=== PATIENT | male | born 1940 | race Caucasian/White ===

== ENCOUNTER 2019-02-07 09:27 | Outpatient (RCR) | payer MEDICARE, OTHER ==
[~2019-02-07 09:27] MED LIST: AMITRIPTYLINE H25 MG PO; AZILECT1 MG PO; CLEOCIN HCL150 MG PO; MIRAPEX1 MG PO
--- NOTE | 2019-02-07 15:05 | NUR ---
Voice/Speech Evaluation History: Mr. Martinez is a 78 year old male seen at the [facility] for a Voice and Speech Evaluation. PMH includes skin cancer and Parkinsons disease. Per pt report, he was initially diagnosed with PD approximately 3 years ago. Pt reported his first symptom was a tremor in his right hand. He stated that his current symptoms include tremors in both hands, a soft voice, slow walking, and drooling. When asked, pt reported that he has fallen several times over the last few months in his home but not out in the community. He reported his most significant problem with communicating is slurred words and a mildly soft voice. He agreed that people ask him to repeat himself several times, especially his . He believes that the volume of his speech is not that low and that his needs to see someone about a hearing aid. Mr. Martinez reported that he talks less than he used to because its frustrating this have to repeat himself repeatedly. He also speaks less because he gets winded easily during conversation. Mr. Martinez describes his voice as a little low and monotone with a hoarse quality. Mr. Martinez reported significant drooling, so much so that he uses an entire roll of toilet paper each day to dry the saliva that comes out either anteriorly or from the sides of his mouth. He prefers to eat finger foods because they are easier to manipulate with both his hands and his mouth. He stated that its sometimes difficult to move the food from the front to the back of his mouth. He denied any difficulty swallowing liquids and denied any coughing or choking during meal times. Pt also denied any recent URI, bronchitis, or PNA. Current medications include glycopyrolate, prampexole, and rasagiline. Patient/family Goal: to stop drooling so much Evaluation Results: Acoustic measures: Sound Pressure Level (SPL, acoustic correlate of vocal loudness) measured with a sound level meter at a distance of 40 cm from mouth during 3 voice and speech tasks revealed the following SPL numbers: AverageRangeAdult Male Norm SUSTAINED VOWELS:69 dB65-72 dB80-85 dB READIN dB62-67 dB80-85 dB CONVERSATION:64 dB67-73 dB80-85 dB LENGTH OF SUSTAINED VOWEL8.8 seconds7-12 [id number] seconds Average pitch range for sustained vowel is 137-230 Hz. Normal pitch range for adult males is 85-300 Hz. These results represented conversational vocal SPL levels and reduced vocal intonation that likely significantly reduce Mr. Allen speech intelligibility and communicative effectiveness. He also has difficulty with vocal fading and reduced diaphragmatic support, lending to quiet speech, and reduced articulatory precision, which decreases speech intelligibility. Perceptual measures: Mr. Allen functional speech intelligibility is reduced 75% of the time. The patient reported that he is not loud enough in conversation 90% of the time. Completion of the Voice Handicap Index (VHI) reveals a perception of a severe voice disorder. Oral Motor Examination: An oral motor speech exam revealed the structures and function of Mr. Allen speech mechanism to be within normal limits. Stimulability Testing: Stimulability testing was completed to determine Mr. Allen stimulability for the [facility] ([facility]) program. With stimulation and cues to increase loudness, Mr. Martinez maintained vocal loudness during sustained vowel phonation at 84 dB, and increased his speech loudness in functional phrases to 78 dB. Length of sustained phonation was 7 seconds. Average pitch range with cues was 116-348 Hz. Vocal quality and speech intelligibility improved with increased loudness. 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 Voice deficits included reduced loudness, reduced pitch range, and decreased articulatory precision, which contributed to an overall decrease in speech intelligibility. Based on stimulability testing, Mr. Martinez appears to be an excellent candidate for the [facility] program. He falls below average speech production of adult males of 80-85 dB. He would benefit from training in [facility] to improve speech production including duration of speech, intelligibility, and participation in conversation in social and occupational situations. Mr. Martinez communicated that while he agrees his speech is soft, this is not what is most important to him at this time. Per Mr. Martinez, his difficulty managing his oral secretions interferes most significantly with his quality of life at this time. To that end, it would be beneficial to complete a formal objective eval of swallow safety to determine if pt has any degree of dysphagia and if treatment would improve swallow function and decrease drooling. Prognosis: fair for goals secondary to moderate level of patient motivation Recommendations: 1. It is recommended that Mr. Martinez participate in the [facility] program, which is comprised of 16 intensive sessions (4 days per week for 4 weeks; 60 minute sessions) of voice treatment. 2.Recommend modified barium swallow study to r/o aspiration and determine if treatment is indicated. 3.Recommend evaluation and treatment, as indicated, by physical therapy secondary to pts reports of falling at home. Long-Term Goal: Patient will use a loud voice to communicate effectively in daily interactions with family and friends and in his occupational environment with independence. Short-Term Goals (first 2 weeks): 1.Patient will increase vocal loudness during sustained phonation to reach a target sound pressure level of 80 dB with minimal cues measured at 40 cm from SPL instrument. 2.Patient will increase length of sustained vowel to 10-15 seconds with minimal assistance. 3.Patient will increase pitch range of sustained vowel to 85-300 Hz with minimal assistance. 4.Pt will produce common, functional phrases to promote carry-over of techniques into the home environment at a target sound pressure level of 80 dB with minimal cues measured at 40 cm from SPL instrument. 5.Patient will increase vocal loudness to reach a target sound pressure level of 80 dB while reading at the word and sentence level with minimal cues measured at 40 cm from SPL instrument. 6.Patient will increase vocal loudness to reach a target sound pressure level of 80 dB during simple, structured conversational speech with minimal cues measured at 40 cm from SPL instrument. Short-Term Goals (next 2 weeks): 1.Patient will reach a target sound pressure level of 80-85 dB measured at 40 cm from SPL instrument during sustained phonation with minimal to no cues to increase loudness and to increase duration of phonation. 2.Patient will increase length of sustained vowel to 10-15 seconds with minimal to no cues. 3.Patient will increase pitch range of sustained vowel to 85-300 Hz with minimal to no cues. 4.Pt will produce common, functional phrases to promote carry-over of techniques into the home environment at a target sound pressure level of 80 dB with minimal to no cues measured at 40 cm from SPL instrument. 5.Patient will increase vocal loudness to read a target sound pressure level of 80 dB during more complex paragraph level reading with minimal cues measured at 40 cm from [employer] instrument. 6.Patient will increase vocal loudness to reach a target sound pressure level of 80 dB during structured and unstructured conversational speech with minimal to no cues measured at 40 cm from SPL instrument. Kimberlyn Fam M.A. [facility] Certified Clinician Date of Eval: 02/07/19 Voice Evaluation X 60 minutes NOMS Voice Level 3
== END 2019-02-16 ==
LOC: ST 09:27
PROVIDERS: ATTEND Psychiatry & Neurology Neurology
DX: K11.7 Disturbances of salivary secretion (principal); R49.8 Other voice and resonance disorders; G20 Parkinson's disease

== ENCOUNTER 2019-05-16 09:51 | Outpatient (RCR) | payer MEDICARE, OTHER ==
--- NOTE | 2019-05-07 09:11 | NUR ---
ST Note: Pt called and cancelled appointment today due to not feeling well. Pt will RTC for next scheduled appointment.
== END 2019-05-18 ==
LOC: ST 09:51
PROVIDERS: ATTEND Psychiatry & Neurology Neurology
DX: G20 Parkinson's disease (principal); M62.81 Muscle weakness (generalized); R26.81 Unsteadiness on feet; R26.9 Unspecified abnormalities of gait and mobility

== ENCOUNTER → 2019-05-27 | Outpatient (CLI) | payer MEDICARE, OTHER ==
--- NOTE | 2019-05-30 10:21 | Diagnostic Imaging Report ---
PROCEDURE: X-RAY MODIFIED BARIUM SWALLOW COMPARISON: Modified barium swallow of 04/15/2019. INDICATION: Aspiration Radiation Details: Fluoroscopy time: 1.6 minutes Cumulative dose: 5.1 mGy DISCUSSION: Fluoroscopic examination was performed in conjunction with speech pathology during swallowing a variety of thin and thick liquid consistencies. Provided images demonstrate no laryngeal penetration or aspiration. CONCLUSION: Modified barium swallow demonstrating no laryngeal penetration or aspiration. Please refer to the speech pathology report for further details. Signed by: Deondre Thomas MD on 05/30/2019 10:17 AM
== END ==
LOC: DX 09:44
PROVIDERS: ATTEND Psychiatry & Neurology Neurology
DX: G20 Parkinson's disease (principal); R13.11 Dysphagia, oral phase; R49.8 Other voice and resonance disorders; Z85.828 Personal history of other malignant neoplasm of skin
CPT/HCPCS: 74230

== ENCOUNTER 2019-06-03 10:00 | Outpatient (RCR) | payer MEDICARE, OTHER ==
--- NOTE | 2019-05-20 10:59 | NUR ---
ST NOTE: Pt called and cx apt, he will return to therapy 05/22/19, will have to reschedule MBS that is currently scheduled for 05/23/19
== END 2019-06-18 ==
LOC: PT 10:00
PROVIDERS: ATTEND Psychiatry & Neurology Neurology
DX: R13.11 Dysphagia, oral phase (principal); R13.13 Dysphagia, pharyngeal phase; G20 Parkinson's disease
CPT/HCPCS: 97139

== ENCOUNTER 2020-01-16 10:00 | Outpatient (RCR) | payer MEDICARE, OTHER | END 2020-01-18 | LOC: PT 10:00 | PROVIDERS: ATTEND Orthopaedic Surgery Orthopaedic Trauma | DX: M75.102 Unspecified rotator cuff tear or rupture of left shoulder, not specified as traumatic (principal) ==

== ENCOUNTER 2020-01-23 10:00 | Outpatient (RCR) | payer MEDICARE, OTHER | END 2020-02-17 | LOC: PT 10:00 | PROVIDERS: ATTEND Orthopaedic Surgery Orthopaedic Trauma | DX: M75.102 Unspecified rotator cuff tear or rupture of left shoulder, not specified as traumatic (principal) ==

== ENCOUNTER 2020-04-16 08:49 | Outpatient (RCR) | payer MEDICARE, OTHER | END 2020-04-19 | LOC: PT 08:49 | PROVIDERS: ATTEND Registered Nurse | DX: R13.11 Dysphagia, oral phase (principal); G20 Parkinson's disease ==

== ENCOUNTER 2020-04-28 09:56 | Outpatient (RCR) | payer MEDICARE, OTHER | END 2020-05-17 | LOC: OT 09:56 | PROVIDERS: ATTEND Registered Nurse | DX: G20 Parkinson's disease (principal); Z85.828 Personal history of other malignant neoplasm of skin ==

== ENCOUNTER 2020-10-15 13:47 | Outpatient (RCR) | payer MEDICARE, OTHER | END 2020-10-17 | LOC: PT 13:47 | PROVIDERS: ATTEND Psychiatry & Neurology Neurology | DX: R29.898 Other symptoms and signs involving the musculoskeletal system (principal); G20 Parkinson's disease ==

== ENCOUNTER 2020-11-13 08:00 | Outpatient (RCR) | payer MEDICARE, OTHER | END 2020-11-17 | LOC: PT 08:00 | PROVIDERS: ATTEND Psychiatry & Neurology Neurology | DX: G20 Parkinson's disease (principal); R29.898 Other symptoms and signs involving the musculoskeletal system ==

== ENCOUNTER 2020-12-11 07:52 | Outpatient (RCR) | payer MEDICARE, OTHER | END 2020-12-17 | LOC: PT 07:52 | PROVIDERS: ATTEND Psychiatry & Neurology Neurology | DX: R29.898 Other symptoms and signs involving the musculoskeletal system (principal); G20 Parkinson's disease | CPT/HCPCS: 97139 ==

== ENCOUNTER 2021-06-16 08:56 | Outpatient (RCR) | payer MEDICARE, OTHER | END 2021-06-17 | LOC: PT 08:56 | PROVIDERS: ATTEND Psychiatry & Neurology Neurology | DX: M25.512 Pain in left shoulder (principal); M25.542 Pain in joints of left hand; M25.561 Pain in right knee; R29.898 Other symptoms and signs involving the musculoskeletal system; G20 Parkinson's disease; R29.6 Repeated falls | CPT/HCPCS: 97139 ==

== ENCOUNTER 2021-07-16 11:00 | Outpatient (RCR) | payer MEDICARE, OTHER | END 2021-07-17 | LOC: PT 11:00 | PROVIDERS: ATTEND Psychiatry & Neurology Neurology | DX: M25.512 Pain in left shoulder (principal); S46.002D Unspecified injury of muscle(s) and tendon(s) of the rotator cuff of left shoulder, subsequent encounter; M25.562 Pain in left knee; M25.561 Pain in right knee; R29.6 Repeated falls; R29.898 Other symptoms and signs involving the musculoskeletal system; G20 Parkinson's disease; R27.9 Unspecified lack of coordination | CPT/HCPCS: 97139 ==

== ENCOUNTER 2021-08-12 10:00 | Outpatient (RCR) | payer MEDICARE, OTHER | END 2021-08-17 | LOC: OT 10:00 | PROVIDERS: ATTEND Internal Medicine | DX: M25.512 Pain in left shoulder (principal); M15.8 Other polyosteoarthritis; M25.562 Pain in left knee; M25.561 Pain in right knee; R29.6 Repeated falls ==

== ENCOUNTER 2021-08-20 09:58 | Outpatient (RCR) | payer MEDICARE, OTHER | END 2021-09-16 | LOC: OT 09:58 | PROVIDERS: ATTEND Internal Medicine | DX: M15.9 Polyosteoarthritis, unspecified (principal); M25.642 Stiffness of left hand, not elsewhere classified; M25.641 Stiffness of right hand, not elsewhere classified ==

== ENCOUNTER 2022-09-07 11:40 | Inpatient (IN) | payer MEDICARE, OTHER ==
[~2022-09-07] VITALS: Ht 170.2 cm; Wt 64.1 kg
[2022-09-07 13:03] LABS: CLARITY,URINE CLEAR (CLEAR); COLOR,URINE YELLOW (YELLOW); KETONES,URINE NEGATIVE (NEGATIVE); LEUKOCYTE ESTERASE ,URINE NEGATIVE (NEGATIVE); NITRITE,URINE NEGATIVE (NEGATIVE); PROTEIN,URINE DIPSTICK NEGATIVE (NEGATIVE)
[2022-09-07 13:04] LABS: URINE UROBILINOGEN 0.2 mg/dL (0.2 - 1)
[2022-09-07 13:07] LABS: BACTERIA,URINE FEW /HPF; EPITHELIAL CELLS,URINE FEW /LPF; WBC,URINE (MAN) 0-5 /HPF (0-5)
[2022-09-07 13:30] LABS: BASOPHILS % 0.4 % (0.0-1.0); EOSINOPHILS # (AUTO) 0.1 (0.0-0.4); EOSINOPHILS % 0.6 % (0.0-6.0); LYMPHOCYTES # (AUTO) 0.7 (1.0-3.2); LYMPHOCYTES % 8.8 % (18.0-39.1); MEAN CORPUSCULAR HEMOGLOBIN 27.3 pg (28-32); MEAN CORPUSCULAR HGB CONC 32.6 g/dL (31-35); MONOCYTES # (AUTO) 0.5 (0.2-0.8); MONOCYTES % 6.6 % (4.4-11.3); NEUTROPHILS # (AUTO) 6.4 (2.1-6.9); NEUTROPHILS % 83.3 % (38.7-80.0); PLATELET COUNT 268 x10e3/uL (140-360); RED BLOOD COUNT 5.12 x10e6/uL (4.3-5.7); RED CELL DISTRIBUTION WIDTH 15.8 % (11.7-14.4)
[2022-09-07 13:45] LABS: INR 1.08; PROTHROMBIN TIME 14.5 seconds (11.9-14.5)
[2022-09-07 13:46] LABS: PARTIAL THROMBOPLASTIN TIME 33.4 seconds (23.8-35.5)
[2022-09-07 13:50] LABS: ALBUMIN 3.3 g/dL (3.5-5.0); ALBUMIN/GLOBULIN RATIO 1.1 (0.8-2.0); ANION GAP 14.3 mmol/L (8-16); CALCIUM 8.8 mg/dL (8.4-10.2); CREATININE, SERUM 1.49 mg/dL (0.72-1.25); POTASSIUM 4.3 mmol/L (3.5-5.1)
[2022-09-07] MEDS ORDERED: ONDANSETRON HCL INJ 2MG/ML 2ML 2 MG/ML VIAL IV PRN (14:15)
[2022-09-07] MEDS: FAMOTIDINE 20 MG/2 ML VIAL IV SCH ×2 (15:02→21:14)
[2022-09-07 15:29] VITALS: PULSE 60; RESP 20; O2SAT 98
[2022-09-07 17:19] VITALS: BP 102/62; PULSE 63; RESP 16; TEMP 97.6; O2SAT 93
[2022-09-07] MEDS ORDERED: AMANTADINE100 M1 PO (18:17)
[2022-09-07] MEDS ORDERED: FUROSEMIDE20 MG PO (18:17)
[2022-09-07 18:46] VITALS: BP 102/62; PULSE 63; RESP 16; TEMP 97.6; O2SAT 93
[2022-09-07 20:00] VITALS: BP 102/62; PULSE 63; RESP 16; TEMP 97.6; O2SAT 93
[2022-09-08] VITALS (7 sets, daily range): BP systolic 107–161; BP diastolic 60–78; PULSE 58–97; RESP 16–20; TEMP 97.9–98.3; O2SAT 93–96
[2022-09-08 05:03] LABS: BASOPHILS % 0.6 % (0.0-1.0); EOSINOPHILS # (AUTO) 0.1 (0.0-0.4); EOSINOPHILS % 1.3 % (0.0-6.0); HEMATOCRIT 40.7 % (38.2-49.6); HEMOGLOBIN 13.2 g/dL (14.0-18.0); LYMPHOCYTES # (AUTO) 1.1 (1.0-3.2); LYMPHOCYTES % 17.4 % (18.0-39.1); MEAN CORPUSCULAR HEMOGLOBIN 27.5 pg (28-32); MEAN CORPUSCULAR HGB CONC 32.4 g/dL (31-35); MEAN CORPUSCULAR VOLUME 84.8 fL (81-99); MONOCYTES # (AUTO) 0.6 (0.2-0.8); MONOCYTES % 8.9 % (4.4-11.3); NEUTROPHILS # (AUTO) 4.5 (2.1-6.9); NEUTROPHILS % 71.5 % (38.7-80.0); PLATELET COUNT 245 x10e3/uL (140-360); RED CELL DISTRIBUTION WIDTH 15.5 % (11.7-14.4)
[2022-09-08 05:36] LABS: ALBUMIN 2.8 g/dL (3.5-5.0); ANION GAP 14.4 mmol/L (8-16); CALCIUM 8.3 mg/dL (8.4-10.2); CHOL/HDL RATIO 3.3 (3.9-4.7); CREATININE, SERUM 1.32 mg/dL (0.72-1.25); POTASSIUM 4.4 mmol/L (3.5-5.1)
[2022-09-08] MEDS ORDERED: FUROSEMIDE INJ 10 MG/ML 2 ML VIAL IV SCH (09:00)
[2022-09-08] MEDS: PRAMIPEXOLE DIHYDROCHLORIDE 1 MG TAB PO SCH ×3 (09:33→21:04)
[2022-09-08] MEDS: FAMOTIDINE 20 MG/2 ML VIAL IV SCH ×2 (09:33→21:04)
[2022-09-08] MEDS: AMANTADINE HCL 100 MG CAP PO SCH ×2 (09:33→17:05)
[2022-09-08] MEDS: RASAGILINE 1 MG TAB PO SCH (09:34)
[2022-09-08] MEDS ORDERED: FUROSEMIDE INJ 10 MG/ML 2 ML VIAL IV ONE (10:45)
[2022-09-08] MEDS: FUROSEMIDE INJ 10 MG/ML 4 ML VIAL IV SCH (17:05)
[2022-09-08] MEDS ORDERED: MUPIROCIN 2% OINT 22 GM TUBE TOP SCH (18:00)
[2022-09-08] MEDS: MUPIROCIN 2% OINT 22 GM TUBE TOP SCH (21:00)
[2022-09-08] MEDS: AMITRIPTYLINE HCL 25 MG TAB PO SCH (22:25)
[2022-09-08] MEDS ORDERED: AMITRIPTYLINE HCL 25 MG TAB PO SCH (22:30)
[2022-09-09] VITALS (8 sets, daily range): BP systolic 92–116; BP diastolic 65–79; PULSE 53–111; RESP 16–18; TEMP 97.5–98.6; O2SAT 92–100
[2022-09-09] MEDS: FAMOTIDINE 20 MG/2 ML VIAL IV SCH ×2 (08:43→21:27)
[2022-09-09] MEDS: FUROSEMIDE INJ 10 MG/ML 4 ML VIAL IV SCH ×2 (08:43→16:51)
[2022-09-09] MEDS: PRAMIPEXOLE DIHYDROCHLORIDE 1 MG TAB PO SCH ×3 (08:43→21:25)
[2022-09-09] MEDS: RASAGILINE 1 MG TAB PO SCH (08:43)
[2022-09-09] MEDS: MUPIROCIN 2% OINT 22 GM TUBE TOP SCH (08:44)
[2022-09-09] MEDS: AMANTADINE HCL 100 MG CAP PO SCH ×2 (08:44→16:51)
[2022-09-09] MEDS ORDERED: ONDANSETRON HCL 4 MG ORAL DISINTEGRATING TAB PO PRN (10:45)
[2022-09-09] MEDS: METOPROLOL SUCCINATE 25 MG TAB XL PO SCH (12:49)
[2022-09-09 15:25] LABS: ALBUMIN 3.5 g/dL (3.5-5.0); ALBUMIN/GLOBULIN RATIO 0.9 (0.8-2.0); ANION GAP 22.2 mmol/L (8-16); CALCIUM 9.3 mg/dL (8.4-10.2); CREATININE, SERUM 1.73 mg/dL (0.72-1.25); POTASSIUM 4.2 mmol/L (3.5-5.1)
[2022-09-09] MEDS ORDERED: AMITRIPTYLINE HCL 25 MG TAB PO SCH (21:00)
[2022-09-09] MEDS: AMITRIPTYLINE HCL 25 MG TAB PO SCH (21:23)
[2022-09-10] VITALS (8 sets, daily range): BP systolic 91–116; BP diastolic 58–73; PULSE 52–66; RESP 15–18; TEMP 97.4–98.5; O2SAT 96–100
[2022-09-10] MEDS: METOPROLOL SUCCINATE 25 MG TAB XL PO SCH (09:00)
[2022-09-10 09:57] LABS: BASOPHILS % 0.5 % (0.0-1.0); EOSINOPHILS # (AUTO) 0.1 (0.0-0.4); EOSINOPHILS % 1.1 % (0.0-6.0); HEMOGLOBIN 16.1 g/dL (14.0-18.0); LYMPHOCYTES # (AUTO) 0.9 (1.0-3.2); LYMPHOCYTES % 15.2 % (18.0-39.1); MEAN CORPUSCULAR HEMOGLOBIN 27.4 pg (28-32); MEAN CORPUSCULAR HGB CONC 33.5 g/dL (31-35); MEAN CORPUSCULAR VOLUME 81.6 fL (81-99); MONOCYTES # (AUTO) 0.5 (0.2-0.8); NEUTROPHILS # (AUTO) 4.6 (2.1-6.9); PLATELET COUNT 264 x10e3/uL (140-360); RED BLOOD COUNT 5.88 x10e6/uL (4.3-5.7); RED CELL DISTRIBUTION WIDTH 16.5 % (11.7-14.4)
[2022-09-10 10:15] LABS: ANION GAP 18.1 mmol/L (8-16); CALCIUM 8.9 mg/dL (8.4-10.2); CREATININE, SERUM 1.71 mg/dL (0.72-1.25); POTASSIUM 4.1 mmol/L (3.5-5.1)
[2022-09-10] MEDS: RASAGILINE 1 MG TAB PO SCH (11:05)
[2022-09-10] MEDS: PRAMIPEXOLE DIHYDROCHLORIDE 1 MG TAB PO SCH ×3 (11:05→20:09)
[2022-09-10] MEDS: AMANTADINE HCL 100 MG CAP PO SCH ×2 (11:05→16:40)
[2022-09-10] MEDS: FUROSEMIDE INJ 10 MG/ML 4 ML VIAL IV SCH ×2 (11:07→16:40)
[2022-09-10] MEDS: FAMOTIDINE 20 MG/2 ML VIAL IV SCH ×2 (11:08→20:09)
[2022-09-10] MEDS: MUPIROCIN 2% OINT 22 GM TUBE TOP SCH (16:02)
[2022-09-10] MEDS: AMITRIPTYLINE HCL 25 MG TAB PO SCH (20:09)
[2022-09-11] VITALS (7 sets, daily range): BP systolic 80–111; BP diastolic 53–92; PULSE 49–64; RESP 15–18; TEMP 97.1–98.6; O2SAT 96–100
[2022-09-11] MEDS: METOPROLOL SUCCINATE 25 MG TAB XL PO SCH (09:00)
[2022-09-11] MEDS: AMANTADINE HCL 100 MG CAP PO SCH ×2 (09:03→16:58)
[2022-09-11] MEDS: PRAMIPEXOLE DIHYDROCHLORIDE 1 MG TAB PO SCH ×3 (09:03→20:46)
[2022-09-11] MEDS: FUROSEMIDE INJ 10 MG/ML 4 ML VIAL IV SCH ×2 (09:04→16:54)
[2022-09-11] MEDS: FAMOTIDINE 20 MG/2 ML VIAL IV SCH ×2 (09:04→20:47)
[2022-09-11] MEDS: RASAGILINE 1 MG TAB PO SCH (09:04)
[2022-09-11] MEDS: MUPIROCIN 2% OINT 22 GM TUBE TOP SCH (09:05)
[2022-09-11] MEDS: AMITRIPTYLINE HCL 25 MG TAB PO SCH (20:46)
[2022-09-12] VITALS (8 sets, daily range): BP systolic 95–127; BP diastolic 58–91; PULSE 57–69; RESP 17–20; TEMP 97.5–98.3; O2SAT 95–100
[2022-09-12 05:55] LABS: ALBUMIN 3.6 g/dL (3.5-5.0); ALBUMIN/GLOBULIN RATIO 0.9 (0.8-2.0); ANION GAP 26.3 mmol/L (8-16); CREATININE, SERUM 2.18 mg/dL (0.72-1.25); MAGNESIUM 2.1 MG/DL (1.3-2.1); POTASSIUM 5.3 mmol/L (3.5-5.1)
[2022-09-12 06:00] LABS: BASOPHILS # (AUTO) 0.1 (0.0-0.1); BASOPHILS % 0.7 % (0.0-1.0); EOSINOPHILS # (AUTO) 0.1 (0.0-0.4); EOSINOPHILS % 0.9 % (0.0-6.0); HEMATOCRIT 60.3 % (38.2-49.6); HEMOGLOBIN 19.1 g/dL (14.0-18.0); LYMPHOCYTES % 13.4 % (18.0-39.1); MEAN CORPUSCULAR HEMOGLOBIN 27.3 pg (28-32); MEAN CORPUSCULAR HGB CONC 31.7 g/dL (31-35); MEAN CORPUSCULAR VOLUME 86.3 fL (81-99); MONOCYTES # (AUTO) 0.8 (0.2-0.8); MONOCYTES % 10.1 % (4.4-11.3); NEUTROPHILS # (AUTO) 5.7 (2.1-6.9); NEUTROPHILS % 74.6 % (38.7-80.0); PLATELET COUNT 159 x10e3/uL (140-360); RED BLOOD COUNT 6.99 x10e6/uL (4.3-5.7); RED CELL DISTRIBUTION WIDTH 18.1 % (11.7-14.4)
[2022-09-12] MEDS: PRAMIPEXOLE DIHYDROCHLORIDE 1 MG TAB PO SCH ×3 (09:02→21:34)
[2022-09-12] MEDS: RASAGILINE 1 MG TAB PO SCH (09:02)
[2022-09-12] MEDS: AMANTADINE HCL 100 MG CAP PO SCH ×2 (09:02→16:08)
[2022-09-12] MEDS: FAMOTIDINE 20 MG/2 ML VIAL IV SCH ×2 (09:03→21:34)
[2022-09-12] MEDS: FUROSEMIDE INJ 10 MG/ML 4 ML VIAL IV SCH (09:03)
[2022-09-12] MEDS ORDERED: SODIUM CHLORIDE 0.9% 500ML 500 ML IV ONE (11:30)
[2022-09-12] MEDS: MUPIROCIN 2% OINT 22 GM TUBE TOP SCH (15:08)
[2022-09-12] MEDS: AMITRIPTYLINE HCL 25 MG TAB PO SCH (21:34)
[2022-09-13] VITALS (7 sets, daily range): BP systolic 95–110; BP diastolic 58–73; PULSE 54–68; RESP 16–20; TEMP 97.7–98.6; O2SAT 93–100
[2022-09-13 05:39] LABS: BASOPHILS # (AUTO) 0.1 (0.0-0.1); BASOPHILS % 0.6 % (0.0-1.0); EOSINOPHILS # (AUTO) 0.1 (0.0-0.4); EOSINOPHILS % 0.9 % (0.0-6.0); HEMOGLOBIN 16.7 g/dL (14.0-18.0); LYMPHOCYTES # (AUTO) 1.1 (1.0-3.2); LYMPHOCYTES % 13.5 % (18.0-39.1); MEAN CORPUSCULAR HEMOGLOBIN 27.3 pg (28-32); MEAN CORPUSCULAR HGB CONC 32.1 g/dL (31-35); MONOCYTES # (AUTO) 0.8 (0.2-0.8); MONOCYTES % 10.7 % (4.4-11.3); NEUTROPHILS # (AUTO) 5.8 (2.1-6.9); NEUTROPHILS % 73.8 % (38.7-80.0); PLATELET COUNT 238 x10e3/uL (140-360); RED BLOOD COUNT 6.12 x10e6/uL (4.3-5.7); RED CELL DISTRIBUTION WIDTH 16.2 % (11.7-14.4)
[2022-09-13 06:00] LABS: ALBUMIN 3.6 g/dL (3.5-5.0); ALBUMIN/GLOBULIN RATIO 1.1 (0.8-2.0); ANION GAP 23.3 mmol/L (8-16); CALCIUM 9.1 mg/dL (8.4-10.2); CREATININE, SERUM 2.11 mg/dL (0.72-1.25); POTASSIUM 4.3 mmol/L (3.5-5.1)
[2022-09-13] MEDS: PRAMIPEXOLE DIHYDROCHLORIDE 1 MG TAB PO SCH ×4 (09:00→20:32)
[2022-09-13] MEDS: AMANTADINE HCL 100 MG CAP PO SCH ×3 (09:00→17:00)
[2022-09-13] MEDS: RASAGILINE 1 MG TAB PO SCH ×2 (09:00→14:06)
[2022-09-13] MEDS: FAMOTIDINE 20 MG/2 ML VIAL IV SCH ×2 (09:00→20:32)
[2022-09-13] MEDS: SODIUM CHLORIDE 0.9% 1000ML 1,000 ML IV SCH (09:10)
[2022-09-13] MEDS: MUPIROCIN 2% OINT 22 GM TUBE TOP SCH (09:11)
[2022-09-13] MEDS: AMITRIPTYLINE HCL 25 MG TAB PO SCH (20:32)
[2022-09-14] VITALS (9 sets, daily range): BP systolic 85–124; BP diastolic 53–69; PULSE 47–61; RESP 16–20; TEMP 97.3–98.6; O2SAT 95–100
[2022-09-14 04:52] LABS: BASOPHILS # (AUTO) 0.1 (0.0-0.1); EOSINOPHILS # (AUTO) 0.1 (0.0-0.4); EOSINOPHILS % 1.4 % (0.0-6.0); HEMATOCRIT 51.4 % (38.2-49.6); HEMOGLOBIN 16.3 g/dL (14.0-18.0); LYMPHOCYTES # (AUTO) 0.9 (1.0-3.2); LYMPHOCYTES % 13.9 % (18.0-39.1); MEAN CORPUSCULAR HEMOGLOBIN 27.2 pg (28-32); MEAN CORPUSCULAR HGB CONC 31.7 g/dL (31-35); MEAN CORPUSCULAR VOLUME 85.8 fL (81-99); MONOCYTES # (AUTO) 0.5 (0.2-0.8); MONOCYTES % 8.5 % (4.4-11.3); NEUTROPHILS # (AUTO) 4.7 (2.1-6.9); NEUTROPHILS % 74.7 % (38.7-80.0); PLATELET COUNT 235 x10e3/uL (140-360); RED BLOOD COUNT 5.99 x10e6/uL (4.3-5.7); RED CELL DISTRIBUTION WIDTH 16.2 % (11.7-14.4)
[2022-09-14 05:16] LABS: ALBUMIN 3.3 g/dL (3.5-5.0); ANION GAP 17.2 mmol/L (8-16); CALCIUM 9.1 mg/dL (8.4-10.2); CREATININE, SERUM 1.59 mg/dL (0.72-1.25); MAGNESIUM 2.4 MG/DL (1.3-2.1); POTASSIUM 4.2 mmol/L (3.5-5.1)
[2022-09-14] MEDS: SODIUM CHLORIDE 0.9% 1000ML 1,000 ML IV SCH (05:47)
[2022-09-14] MEDS: FAMOTIDINE 20 MG/2 ML VIAL IV SCH ×2 (10:05→20:54)
[2022-09-14] MEDS: PRAMIPEXOLE DIHYDROCHLORIDE 1 MG TAB PO SCH ×3 (10:05→20:53)
[2022-09-14] MEDS: RASAGILINE 1 MG TAB PO SCH (10:06)
[2022-09-14] MEDS: AMANTADINE HCL 100 MG CAP PO SCH ×2 (10:06→20:54)
[2022-09-14] MEDS: MUPIROCIN 2% OINT 22 GM TUBE TOP SCH (10:10)
[2022-09-14] MEDS: AMITRIPTYLINE HCL 25 MG TAB PO SCH (20:54)
[2022-09-15] VITALS (7 sets, daily range): BP systolic 82–136; BP diastolic 51–94; PULSE 50–65; RESP 15–20; TEMP 97.3–97.7; O2SAT 89–100
[2022-09-15] MEDS: SODIUM CHLORIDE 0.9% 1000ML 1,000 ML IV SCH ×2 (01:39→21:30)
[2022-09-15] MEDS: AMANTADINE HCL 100 MG CAP PO SCH ×2 (08:25→20:10)
[2022-09-15] MEDS: PRAMIPEXOLE DIHYDROCHLORIDE 1 MG TAB PO SCH ×3 (08:25→20:10)
[2022-09-15] MEDS: FAMOTIDINE 20 MG/2 ML VIAL IV SCH ×2 (08:25→20:18)
[2022-09-15] MEDS: RASAGILINE 1 MG TAB PO SCH (08:25)
[2022-09-15] MEDS: MUPIROCIN 2% OINT 22 GM TUBE TOP SCH (08:27)
[2022-09-15] MEDS: METOPROLOL TARTRATE 25 MG TAB PO SCH (16:51)
[2022-09-15] MEDS: AMITRIPTYLINE HCL 25 MG TAB PO SCH (20:10)
[2022-09-16 01:00] VITALS: BP 116/59; PULSE 66; RESP 18; TEMP 98.3; O2SAT 97
[2022-09-16 04:59] LABS: BASOPHILS # (AUTO) 0.1 (0.0-0.1); BASOPHILS % 0.8 % (0.0-1.0); EOSINOPHILS # (AUTO) 0.2 (0.0-0.4); EOSINOPHILS % 2.3 % (0.0-6.0); HEMATOCRIT 47.9 % (38.2-49.6); HEMOGLOBIN 15.4 g/dL (14.0-18.0); LYMPHOCYTES # (AUTO) 1.6 (1.0-3.2); LYMPHOCYTES % 19.5 % (18.0-39.1); MEAN CORPUSCULAR HEMOGLOBIN 27.1 pg (28-32); MEAN CORPUSCULAR HGB CONC 32.2 g/dL (31-35); MEAN CORPUSCULAR VOLUME 84.2 fL (81-99); MONOCYTES # (AUTO) 0.7 (0.2-0.8); MONOCYTES % 8.3 % (4.4-11.3); NEUTROPHILS # (AUTO) 5.5 (2.1-6.9); NEUTROPHILS % 68.8 % (38.7-80.0); PLATELET COUNT 222 x10e3/uL (140-360); RED BLOOD COUNT 5.69 x10e6/uL (4.3-5.7); RED CELL DISTRIBUTION WIDTH 15.9 % (11.7-14.4)
[2022-09-16 05:11] VITALS: BP 155/77; PULSE 66; RESP 16; TEMP 97.3; O2SAT 99
[2022-09-16 05:22] LABS: ALBUMIN 3.1 g/dL (3.5-5.0); ANION GAP 14.7 mmol/L (8-16); CALCIUM 8.9 mg/dL (8.4-10.2); CREATININE, SERUM 1.47 mg/dL (0.72-1.25); MAGNESIUM 2.1 MG/DL (1.3-2.1); POTASSIUM 4.7 mmol/L (3.5-5.1)
[2022-09-16 08:00] VITALS: BP 103/55; PULSE 47; RESP 18; TEMP 97.4; O2SAT 97
[2022-09-16] MEDS: METOPROLOL TARTRATE 25 MG TAB PO SCH ×2 (09:00→16:53)
[2022-09-16 09:01] VITALS: BP 103/55; PULSE 47; RESP 18; TEMP 97.4; O2SAT 97
[2022-09-16] MEDS: AMANTADINE HCL 100 MG CAP PO SCH (09:47)
[2022-09-16] MEDS: RASAGILINE 1 MG TAB PO SCH (09:47)
[2022-09-16] MEDS: PRAMIPEXOLE DIHYDROCHLORIDE 1 MG TAB PO SCH ×2 (09:47→15:12)
[2022-09-16] MEDS: FAMOTIDINE 20 MG/2 ML VIAL IV SCH (09:47)
[2022-09-16 12:00] VITALS: BP 123/68; PULSE 58; RESP 21; TEMP 97.8; O2SAT 99
[2022-09-16 15:58] VITALS: BP 109/67; PULSE 61; RESP 21; TEMP 98.6; O2SAT 99
[2022-09-16] MEDS ORDERED: FAMOTIDINE 20 MG TAB PO SCH (16:30)
== END 2022-09-16 18:13 | DRG 291 ==
LOC: ER 11:49 → ERHOLD 14:09 → MED/SURG 17:08
PROVIDERS: ADMIT Internal Medicine; ATTEND Internal Medicine
DX: I13.0 Hypertensive heart and chronic kidney disease with heart failure and stage 1 through stage 4 chronic kidney disease, or unspecified chronic kidney disease (principal); I50.43 Acute on chronic combined systolic (congestive) and diastolic (congestive) heart failure; E46 Unspecified protein-calorie malnutrition; N17.9 Acute kidney failure, unspecified; I35.0 Nonrheumatic aortic (valve) stenosis; Z68.22 Body mass index [BMI] 22.0-22.9, adult; W01.10XA Fall on same level from slipping, tripping and stumbling with subsequent striking against unspecified object, initial encounter; Z91.81 History of falling; Y92.231 Patient bathroom in hospital as the place of occurrence of the external cause; G20 Parkinson's disease; C44.90 Unspecified malignant neoplasm of skin, unspecified; N18.30 Chronic kidney disease, stage 3 unspecified; D63.1 Anemia in chronic kidney disease; S01.01XA Laceration without foreign body of scalp, initial encounter; F03.90 Unspecified dementia, unspecified severity, without behavioral disturbance, psychotic disturbance, mood disturbance, and anxiety; R00.1 Bradycardia, unspecified; I95.9 Hypotension, unspecified; Z20.822 Contact with and (suspected) exposure to COVID-19; Z59.6 Low income
CPT/HCPCS: 36415; 70450; 71046; 72125; 73522; 80048; 80053; 80061; 81001; 82140; 82550; 82948; 83735; 83880; 84484; 85025; 85610; 85730; 93005; 93306; 94799; 99252; 99284; J1940; J7030; J7040

== ENCOUNTER 2023-01-03 18:07 | Emergency (ER) | payer OTHER, MEDICARE ==
[~2023-01-03] VITALS: Ht 170.2 cm; Wt 59.0 kg
[~2023-01-03 18:07] MED LIST changes: +AMANTADINE100 M1 PO; +BACITRACIN15 GM TOP; +DOXYCYCLINE HY100 MG PO; +FUROSEMIDE20 MG PO
[2023-01-03 19:25] VITALS: O2SAT 97
== END 2023-01-03 19:43 | disposition home or self-care (01) ==
LOC: FSED 18:35
DX: S81.812A Laceration without foreign body, left lower leg, initial encounter (principal); W07.XXXA Fall from chair, initial encounter; Y92.89 Other specified places as the place of occurrence of the external cause; G20.A1 Parkinson's disease without dyskinesia, without mention of fluctuations; I50.9 Heart failure, unspecified; Z85.828 Personal history of other malignant neoplasm of skin
CPT/HCPCS: 99283

== ENCOUNTER 2023-04-05 09:18 | Emergency (ER) | payer MEDICARE, OTHER ==
[~2023-04-05] VITALS: Ht 167.6 cm; Wt 53.5 kg
[~2023-04-05 09:18] MED LIST changes: +QUETIAPINE FUMA50 MG PO
[2023-04-05 09:25] VITALS: O2SAT 100
[2023-04-05] MEDS ORDERED: TETANUS/DIPHTHERIA TOX ADULT 0.5 ML SYR IM ONE (09:30)
[2023-04-05] MEDS ORDERED: LIDOCAINE HCL 1% LOCAL INJ 20 ML VIAL INJ ONE (09:30)
[2023-04-05] MEDS ORDERED: CEPHALEXIN500 MG PO (11:39)
== END 2023-04-05 11:59 | disposition home or self-care (01) ==
LOC: ER 09:22
DX: S01.111A Laceration without foreign body of right eyelid and periocular area, initial encounter (principal); S01.411A Laceration without foreign body of right cheek and temporomandibular area, initial encounter; W18.09XA Striking against other object with subsequent fall, initial encounter; Y92.89 Other specified places as the place of occurrence of the external cause; I50.9 Heart failure, unspecified; G20.A1 Parkinson's disease without dyskinesia, without mention of fluctuations; Z85.828 Personal history of other malignant neoplasm of skin
CPT/HCPCS: 12013; 70450; 72125; 90471; 90714; 99284; J2001

== ENCOUNTER 2024-05-14 16:01 | Emergency (ER) | payer MEDICARE, OTHER ==
[~2024-05-14] VITALS: Ht 170.2 cm; Wt 58.5 kg
[~2024-05-14 16:01] MED LIST changes: +CEPHALEXIN500 MG PO
[2024-05-14 16:11] VITALS: PULSE 64; RESP 15; TEMP 98.2
[2024-05-14] MEDS: BACITRACIN ZINC 0.9GM TP ONE (17:12)
[2024-05-14] MEDS ORDERED: CEPHALEXIN500 MG PO (17:16)
[2024-05-14] MEDS ORDERED: MUPIROCIN22 GM TOP (17:17)
[2024-05-14 19:10] VITALS: BP 103/59; PULSE 60; RESP 18; TEMP 98.2; O2SAT 98
== END 2024-05-14 19:10 | disposition home or self-care (01) ==
LOC: FSED 16:19
DX: M79.632 Pain in left forearm (principal); S51.812A Laceration without foreign body of left forearm, initial encounter; S51.012A Laceration without foreign body of left elbow, initial encounter; S61.412A Laceration without foreign body of left hand, initial encounter; W18.39XA Other fall on same level, initial encounter; Y92.89 Other specified places as the place of occurrence of the external cause; G20.A1 Parkinson's disease without dyskinesia, without mention of fluctuations; Z85.828 Personal history of other malignant neoplasm of skin
CPT/HCPCS: 70450; 99283

== ENCOUNTER 2024-06-29 15:09 | Emergency (ER) | payer MEDICARE, OTHER ==
[~2024-06-29 15:09] MED LIST changes: +MUPIROCIN22 GM TOP
[2024-06-29 15:15] VITALS: PULSE 71; RESP 16; TEMP 98.2
[2024-06-29] MEDS ORDERED: LIDOCAINE 1% W/EPINEPHRINE 20 ML VIAL ONE (16:16)
[2024-06-29 19:03] VITALS: BP 145/72; PULSE 65; RESP 20; TEMP 98.4; O2SAT 97
== END 2024-06-29 19:00 | disposition home or self-care (01) ==
LOC: FSED 15:28
DX: S41.112A Laceration without foreign body of left upper arm, initial encounter (principal); W01.0XXA Fall on same level from slipping, tripping and stumbling without subsequent striking against object, initial encounter; Y93.01 Activity, walking, marching and hiking; Y92.89 Other specified places as the place of occurrence of the external cause; I10 Essential (primary) hypertension; I50.9 Heart failure, unspecified; G20.A1 Parkinson's disease without dyskinesia, without mention of fluctuations; Z79.01 Long term (current) use of anticoagulants
CPT/HCPCS: 70450; 99283

== ENCOUNTER 2024-11-12 18:33 | Emergency (ER) | payer MEDICARE, OTHER ==
[~2024-11-12] VITALS: Ht 154.9 cm; Wt 59.0 kg
[2024-11-12 18:35] VITALS: PULSE 75; RESP 16; TEMP 98.6
[2024-11-12 19:53] VITALS: BP 127/59; PULSE 75; RESP 16; TEMP 98.6; O2SAT 99
[2024-11-12] MEDS: CEPHALEXIN MONOHYDRATE 250 MG CAP PO ONE (20:00)
[2024-11-12] MEDS: BACITRACIN ZINC 0.9GM TP ONE (20:01)
== END 2024-11-12 19:53 | disposition home or self-care (01) ==
LOC: FSED 18:37
DX: S51.001A Unspecified open wound of right elbow, initial encounter (principal); S80.812A Abrasion, left lower leg, initial encounter; W18.39XA Other fall on same level, initial encounter; Y92.89 Other specified places as the place of occurrence of the external cause; I10 Essential (primary) hypertension; I50.9 Heart failure, unspecified; G20.A1 Parkinson's disease without dyskinesia, without mention of fluctuations
CPT/HCPCS: 99283

== ENCOUNTER 2025-01-02 14:24 | Emergency (ER) | payer MEDICARE, OTHER ==
[~2025-01-02] VITALS: Ht 170.2 cm; Wt 56.7 kg
[2025-01-02] MEDS ORDERED: TETANUS/DIPHTHERIA TOX ADULT 0.5 ML SYR IM ONE (14:45)
[2025-01-02 15:35] VITALS: PULSE 62; RESP 18; TEMP 98.7
[2025-01-02] MEDS ORDERED: AMOX TR-K CLV1 EAC2 PO (16:07)
[2025-01-02 17:43] VITALS: BP 144/77; PULSE 64; RESP 18; O2SAT 100
== END 2025-01-02 16:40 | disposition home or self-care (01) ==
LOC: ER 14:37
DX: S01.511A Laceration without foreign body of lip, initial encounter (principal); W18.39XA Other fall on same level, initial encounter; Y93.01 Activity, walking, marching and hiking; Y92.89 Other specified places as the place of occurrence of the external cause; I50.9 Heart failure, unspecified; G20.A1 Parkinson's disease without dyskinesia, without mention of fluctuations
CPT/HCPCS: 70450; 70486; 72125; 99283